=== PATIENT | male | born 1955 | race Caucasian/White ===

== ENCOUNTER 2018-08-15 00:52 | Emergency (ER) | payer OTHER ==
[~2018-08-15] VITALS: Ht 177.8 cm; Wt 106.0 kg
[2018-08-15 00:53] VITALS: BP 147/96
== END 2018-08-15 01:15 | disposition home or self-care (01) ==
LOC: ER 00:53
DX: I10 Essential (primary) hypertension (principal); Z02.89 Encounter for other administrative examinations; W20.8XXA Other cause of strike by thrown, projected or falling object, initial encounter; Y93.89 Activity, other specified; Y92.89 Other specified places as the place of occurrence of the external cause; Y99.8 Other external cause status
CPT/HCPCS: 99283